=== PATIENT | female | born 1950 | race Caucasian/White ===

== ENCOUNTER 2016-12-03 19:00 | Inpatient (IN) | payer OTHER ==
[~2016-12-03] VITALS: Ht 167.6 cm; Wt 86.2 kg
[~2016-12-03 19:00] MED LIST: ALBU0.63 NEB; ALBU8.5H8 INH; CHOL2000 PO; CHOL500016 PO; FLAX100031 PO; HYDR25TA9 PO; LOSA100T6 PO; NAPR220T70 PO; OMEG500C PO; PRAV20TA2 PO; TIOT18CA IH
--- NOTE | 2016-12-03 19:22 | ED.ADGEN ---
Past History Past Medical History: COPD, Hypertension Past Surgical History: Appendectomy, Cholecystectomy, Hysterectomy Alcohol Use: None Drug Use: None Adult General HPI HPI Patient is an 66-year-old female, history of dementia, COPD, oxygen dependent on 3 L at all times, hypertension, who presents to the emergency department via private vehicle with report of shortness of breath and inability to use her oxygen concentrator. Patient states she was more short of breath earlier today, states she believes "it was the humidity", noted that her concentrator was not working. Patient states that her oxygen is "running out", she did have an oxygen bottle that she brought to the emergency department, but states that her concentrator is not longer working. Per report of family which was given to nurse via telephone prior to the patient's arrival in the ED, apparently the patient has not paid her bill to the concentrator company, and therefore they will not service the concentrator until the balance is settled, and was running out of her tank oxygen at home. Family also reported the patient is being placed on hospice on Wednesday. Additional information is available at this time. Patient is very anxious, states that she has had some increased swelling in her lower extremities as well, her family at bedside, they have discussed this with the patient's primary care provider recently. She states that she tries "to stay away from doctors and hospitals". She denies any changes in medication, missed doses of medication. States she is compliant with the instructions her health care provider. Patient is on her baseline 3 L via nasal cannula, with an oxygen saturation of 92-94%. Review of Systems Review of Systems Constitutional: Denies fever or chills [] Eyes: Denies change in visual acuity, redness, or eye pain [] HENT: Denies nasal congestion or sore throat [] Respiratory: Denies cough or shortness of breath [] Cardiovascular: No additional information not addressed in HPI [] GI: Denies abdominal pain, nausea, vomiting, bloody stools or diarrhea [] : Denies dysuria or hematuria [] Musculoskeletal: Denies back pain or joint pain [] Integument: Denies rash or skin lesions [] Neurologic: Denies headache, focal weakness or sensory changes [] Endocrine: Denies polyuria or polydipsia [] Denies complaints aside from her typical shortness of breath and lower leg swelling. Current Medications Current Medications Current Medications Medications (Trade) Dose Ordered Sig/Saida Start Time Stop Time Status Last Admin Dose Admin Acetaminophen (Tylenol) 650 mg PRN Q4HRS PRN 12/03/16 23:00 12/04/16 22:59 Albuterol/ Ipratropium (Duoneb) 3 ml RTQID 12/04/16 08:00 12/05/16 07:59 Aspirin (Children'S Aspirin) 81 mg STK-MED ONCE 12/03/16 20:53 12/03/16 20:54 DC Furosemide (Lasix) 40 mg 1X ONCE 12/03/16 21:20 12/03/16 21:21 DC 12/03/16 21:24 40 MG Nitroglycerin (Nitrostat) 0.4 mg PRN Q5MIN PRN 12/03/16 23:00 12/04/16 22:59 Ondansetron HCl (Zofran) 4 mg PRN Q4HRS PRN 12/03/16 23:00 12/04/16 22:59 Allergies Allergies Allergies Coded Allergies Type Severity Reaction Last Updated Verified Penicillins Allergy Intermediate rash 07/03/14 No Uncoded Allergies Type Severity Reaction Last Updated Verified soaps Adverse Reaction Unknown rash 07/02/14 Physical Exam Physical Exam Constitutional: Well developed, well nourished, anxious, non-toxic appearance. [ ] HENT: Normocephalic, atraumatic, bilateral external ears normal, oropharynx moist, no oral exudates, nose normal. [] Eyes: PERRLA, EOMI, conjunctiva normal, no discharge. [] Neck: Normal range of motion, no tenderness, supple, no stridor. [] Cardiovascular: S1, S2, no rubs, 3-5 systolic murmur, no gallops. Lungs & Thorax: Patient with diminished breath sounds noted throughout, no chest wall crepitus or tenderness. Abdomen: Bowel sounds normal, obese, no rebound, rigidity, no guarding soft, no tenderness, no masses, no pulsatile masses. [] Skin: Warm, dry, no erythema, no rash. [] Back: No tenderness, no CVA tenderness. [] Extremities: No tenderness, no cyanosis, no clubbing, ROM intact, 2+ pitting edema bilaterally, no evidence of acute infection. Neurologic: Alert and oriented X 3, normal motor function, normal sensory function, no focal deficits noted. [] Psychologic: Patient is anxious, judgement normal, mood normal. [] Current Patient Data Vital Signs Vital Signs Date Time Temp Pulse Resp B/P (MAP) Pulse Ox O2 Delivery O2 Flow Rate FiO2 12/03/16 21:32 88 16 166/64 (98) 99 Nasal Cannula 3.0 12/03/16 19:07 98.4 Lab Results Laboratory Tests Test 12/03/16 19:55 12/03/16 20:40 White Blood Count 11.0 x10^3/uL (4.0-11.0) Red Blood Count 4.55 x10^6/uL (3.50-5.40) Hemoglobin 14.0 g/dL (12.0-15.5) Hematocrit 42.0 % (36.0-47.0) Mean Corpuscular Volume 92 fL (79-100) Mean Corpuscular Hemoglobin 31 pg (25-35) Mean Corpuscular Hemoglobin Concent 33 g/dL (31-37) Red Cell Distribution Width 14.4 % (11.5-14.5) Platelet Count 152 x10^3/uL (140-400) Neutrophils (%) (Auto) 70 % (31-73) Lymphocytes (%) (Auto) 18 % (24-48) L Monocytes (%) (Auto) 9 % (0-9) Eosinophils (%) (Auto) 2 % (0-3) Basophils (%) (Auto) 1 % (0-3) Neutrophils # (Auto) 7.7 x10^3uL (1.8-7.7) Lymphocytes # (Auto) 2.0 x10^3/uL (1.0-4.8) Monocytes # (Auto) 1.0 x10^3/uL (0.0-1.1) Eosinophils # (Auto) 0.2 x10^3/uL (0.0-0.7) Basophils # (Auto) 0.1 x10^3/uL (0.0-0.2) Sodium Level 134 mmol/L (136-145) L Potassium Level 3.9 mmol/L (3.5-5.1) Chloride Level 95 mmol/L (98-107) L Carbon Dioxide Level 35 mmol/L (21-32) H Anion Gap 4 (6-14) L Blood Urea Nitrogen 14 mg/dL (7-20) Creatinine 1.1 mg/dL (0.6-1.0) H Estimated GFR (Cockcroft-Gault) 49.4 BUN/Creatinine Ratio 13 (6-20) Glucose Level 100 mg/dL (70-99) H Calcium Level 9.3 mg/dL (8.5-10.1) Total Bilirubin 0.4 mg/dL (0.2-1.0) Aspartate Amino Transferase (AST) 17 U/L (15-37) Alanine Aminotransferase (ALT) 16 U/L (14-59) Alkaline Phosphatase 82 U/L (46-116) Troponin I Quantitative 0.120 ng/mL (0-0.055) H ZD-Uqr-M-Type Natriuretic Peptide 4655 pg/mL (0-124) H Total Protein 6.9 g/dL (6.4-8.2) Albumin 3.9 g/dL (3.4-5.0) Albumin/Globulin Ratio 1.3 (1.0-1.7) Urine Collection Type Unknown Urine Color Yellow Urine Clarity Hazy Urine pH 6.5 Urine Specific [place] 1.010 Urine Protein 30 mg/dl (NEG-TRACE) Urine Glucose (UA) Neg mg/dL (NEG) Urine Ketones (Stick) Neg mg/dL (NEG) Urine Blood Trace (NEG) Urine Nitrite Neg (NEG) Urine Bilirubin Neg (NEG) Urine Urobilinogen Dipstick 0.2 mg/dL (0.2 mg/dL) Urine Leukocyte Esterase Mod (NEG) Urine RBC 0 /HPF (0-2) Urine WBC 5-10 /HPF (0-4) Urine Squamous Epithelial Cells Mod /LPF Urine Bacteria Mod /HPF (0-FEW) Urine Yeast Present /HPF EKG EKG EC: Sinus rhythm, heart rate 82 beats minute, upright axis, QTC of 433, PA 144, QRS of 86, contour normality is noted in the anterior septal leads, no ST elevations or depressions, abnormal ECG, does not meet STEMI criteria. As interpreted by me. [] Radiology/Procedures Radiology/Procedures [] Course & Med Decision Making Course & Med Decision Making Pertinent Labs and Imaging studies reviewed. (See chart for details) I spoke with Dr. Cook, the patient's primary care provider, who states that she has been working with family to try to provide additional coverage and assistance the patient home. States that she has been contacted several times going regarding the swelling in the patient's lower extremity recently, discussed that the patient had this point is appearing stable in the ED, but as stated has no axis to her necessary oxygen at home, and at this time we will proceed with an evaluation of the patient's shortness of breath and bilateral leg swelling, with plan to admit the patient for additional observation and management. She states that she will contact the oxygen concentrator company to assist with the issue tomorrow. Laboratory studies reveal a troponin that is elevated at 0.120, and a proBNP that is greater than 4500. Chest x-ray is unremarkable, ECG does not reveal evidence of ST elevation or depression, and patient is chest pain-free in the ED and denies any chest pain, currently no shortness of breath. I did discuss findings as above with Dr. Walker cardiology, patient has received aspirin in the ED, and remains asymptomatic. I believe the patient's elevated troponin may be due to congestive heart failure, she does take Lasix, although I been able to obtain the exact dosing at this time, in conjunction with the patient's COPD, will continue to monitor her cardiac function. He recommends admission to [facility], with serial troponins, patient also received 40 Lasix in the ED, will continue to monitor, no other in a quite relation at this time. I did discuss this with Dr. Zarate, patient was accepted to his service as a full admission to the ICU for close monitoring and cardiology consultation. Ridge orders entered per discussion. Patient remained stable and comfortable in the emergency department , transferred to the ICU without issue. Final Impression Final Impression [] Problems: Dragon Disclaimer Dragon Disclaimer This electronic medical record was generated, in whole or in part, using a voice recognition dictation system. Departure: Impression: Primary Impression: Elevated troponin Additional Impression: Shortness of breath Condition: IMPROVED ALAN CROCKETT DO Dec 03, 2016 19:22
[2016-12-03 20:16] LABS: BASO # 0.1 x10^3/uL (0.0-0.2); BASO % 1 % (0-3); EOS # 0.2 x10^3/uL (0.0-0.7); EOS % 2 % (0-3); LYMPH % 18 % (24-48); MEAN CORPUSCULAR HEMOGLOBIN 31 pg (25-35); MEAN CORPUSCULAR HGB CONC 33 g/dL (31-37); MEAN CORPUSCULAR VOLUME 92 fL (79-100); MONO % 9 % (0-9); NEUT # 7.7 x10^3uL (1.8-7.7); NEUT % 70 % (31-73); PLATELET COUNT 152 x10^3/uL (140-400); RED BLOOD COUNT 4.55 x10^6/uL (3.50-5.40); RED CELL DISTRIBUTION WIDTH 14.4 % (11.5-14.5)
--- NOTE | 2016-12-03 20:32 | EKG ---
[facility] ED [facility] [address] [place] [id number] Test Date: 2016-12-03 Test Time: 20:30:26 Pat Name: ROGE PINEDA Department: Room: Gender: F [employer]: : 1950 Requested By: ALAN CROCKETT Order Number: [id number] Reading MD: Measurements Intervals [place] Rate: 82 P: 30 MN: 144 QRS: 18 QRSD: 86 T: 64 QT: 368 QTc: 433 Interpretive Statements SINUS RHYTHM LEFT ATRIAL ABNORMALITY QRS(T) CONTOUR ABNORMALITY CANNOT RULE OUT ANTEROSEPTAL MYOCARDIAL DAMAGE T ABNORMALITY IN HIGH LATERAL LEADS RI6.01 Unconfirmed report No previous ECG available for comparison
[2016-12-03 20:39] LABS: ALBUMIN 3.9 g/dL (3.4-5.0); ALBUMIN/GLOBULIN RATIO 1.3 (1.0-1.7); CALCIUM 9.3 mg/dL (8.5-10.1); CREATININE 1.1 mg/dL (0.6-1.0); GFR 49.4; POTASSIUM 3.9 mmol/L (3.5-5.1); TOTAL BILIRUBIN 0.4 mg/dL (0.2-1.0); TOTAL PROTEIN 6.9 g/dL (6.4-8.2)
[2016-12-03] MEDS ORDERED: ASPIRIN 81 MG TAB.CHEW ONE (20:53)
[2016-12-03 20:57] LABS: CLARITY,URINE HAZY; COLOR,URINE YELLOW
[2016-12-03 20:58] LABS: BACTERIA,URINE MOD /HPF (0-FEW); BILIRUBIN,URINE NEG (NEG); GLUCOSE,URINE NEG (NEG); NITRITE,URINE NEG (NEG); RBC,URINE 0 /HPF (0-2); SQUAMOUS EPITHELIAL CELL,UR MOD /LPF; UROBILINOGEN,URINE 0.2 mg/dL (0.2 mg/dL); YEAST,URINE PRESENT /HPF
[2016-12-03] MEDS ORDERED: IPRATRPIUM/ALBUTEROL 0.5/2.5MG 3 ML NEBU. NEB ONE (21:20)
[2016-12-03] MEDS ORDERED: FUROSEMIDE 40 MG/4 ML VIAL IVP ONE (21:20)
[2016-12-03] MEDS ORDERED: ASPIRIN 81 MG TAB.CHEW PO ONE (22:50)
[2016-12-03 23:00] VITALS: BP 135/79
[2016-12-03] MEDS ORDERED: NITROGLYCERIN SUBLINGUAL 0.4 MG BOTTLE OF 25. SL PRN (23:00)
[2016-12-03] MEDS ORDERED: ONDANSETRON PF 4 MG/2 ML VIAL. IV PRN (23:00)
[2016-12-03] MEDS ORDERED: ACETAMINOPHEN 325 MG TABLET PO PRN (23:00)
[2016-12-04] VITALS (16 sets, daily range): BP systolic 100–166; BP diastolic 54–95
[2016-12-04] MEDS ORDERED: ASPI-630 PO (00:23)
[2016-12-04] MEDS ORDERED: LABE200T2 PO (00:23)
--- NOTE | 2016-12-04 04:09 | ACF ---
Admission Criteria Forms TELEMETRY CARE Telemetry Admission Guidelines (Place 'X' for any and all applicable criteria): Admission to telemetry [A] may be indicated for ANY ONE of the following(1)(2)(3 )(4)(5): [X]I. Cardiac disease, including ANY ONE of the following (9)(10)(11)(12)(13 ): [ ]a) Postacute NE [ ]b) Low-risk patients with ST-segment elevation NE who have undergone successful percutaneous coronary intervention [ ]c) Unstable angina [X]d) Suspected NE (until it is ruled out) [ ]e) Post cardiac surgery (first 48 to 72 hours unless complications occur) [ ]f) Acute arrhythmias (including significant tachycardia or bradycardia) [B] [ ]g) Firing of an implantable cardioverter defibrillator [C] [ ]h) Suspected pacemaker or implantable cardioverter defibrillator malfunction (10) [ ]i) New administration or adjustment of an antiarrhythmic drug [D ] [ ]j) Child admitted for acute congestive heart failure [ ]j) Long QT syndrome [ ]k) Advanced heart block (eg, second-degree Mobitz type II, third- degree heart block) [ ]l) Acute myocarditis or pericarditis [ ]m) Short-term (ambulatory or inpatient) monitoring after a cardiac procedure as indicated by ANY ONE of the following [E]: [ ]i) Electrophysiologic studies [ ]ii) Percutaneous coronary intervention with stent placement [ ]iii) Pacemaker placement with cardiac conduction defect [ ]iv) Implantable cardiac defibrillator placement [ ]II. Drug overdose or poisoning with substance that causes arrhythmias or QT prolongation (eg, phenothiazines, sympathomimetic agents, cyclic antidepressants, digitalis, antiarrhythmic drugs)(15) [ ]III. Short-term (ambulatory or inpatient) monitoring after therapeutic or diagnostic procedure requiring conscious sedation or anesthesia (eg, endoscopy, elective cardioversion) [ ]IV. Acute cerebrovascular even[F](18) [ ]V. Massive blood transfusion (eg, at least 10 units of packed red blood cells in 24 hours) [ ]. Variceal bleeding after endoscopy, sclerotherapy, or IV vasopressin [ ]VII. Uncorrected electrolyte abnormalities associated with an increased risk of dangerous arrhythmia [G]; examples include [ ]a) Hyperkalemia with attributable ECG changes [ ]b) Potassium greater than 6.5 mmol/L (mEq/L) in a patient without history of chronic renal disease [ ]c) Prolonged QT attributed to hypokalemia, hypomagnesemia, or hypocalcemia [ ]VIII.Unexplained syncope or other neurologic event suspected of being due to arrhythmia due to a finding that increases risk; examples include(19)(20)(21): [ ]a) High-risk ECG findings (eg, bifascicular block, bradycardia, abnormal QT interval, ventricular pre- excitation) [ ]b) History of previous syncope due to arrhythmia [ ]c) Abnormal ventricular function (eg, reduced ejection fraction ) [ ]d) Exertional or supine syncope [ ]e) Concerning syncope characteristics (eg, sudden loss of consciousness without prodrome) [ ]f) Family history of sudden [ ]g) Use of arrhythmogenic medication [ ]h) Suspected cardiac ischemia [ ]i) Known channelopathy (eg, long QT syndrome, Brugada syndrome, or catecholaminergic paroxysmal ventricular tachycardia) [ ]j) Known structural heart disease (eg, hypertrophic cardiomyopathy , severe valvular disease) [ ]k) Palpitations preceding syncope The original [employer] content created by [employer] has been revised. The portions of the content which have been revised are identified through the use of italic text or in bold, and [employer] has neither reviewed nor approved the modified material. All other unmodified content is copyright [employer]. Please see references footnoted in the original [employer] edition 2016 Admission Criteria Met?: Yes TICO UGARTE Dec 04, 2016 04:09
[2016-12-04] MEDS ORDERED: IPRATRPIUM/ALBUTEROL 0.5/2.5MG 3 ML NEBU. NEB PRN (06:45)
--- NOTE | 2016-12-04 07:05 | EKG ---
[address] [address] Test Date: 2016-12-04 Test Time: 07:04:06 Pat Name: ROGE PINEDA Department: Room: Gender: F [employer]: : 1950 Requested By: ALAN CROCKETT Order Number: [id number] Reading MD: Measurements Intervals [place] Rate: 74 P: 41 HI: 164 QRS: 11 QRSD: 78 T: 75 QT: 382 QTc: 424 Interpretive Statements SINUS RHYTHM LEFT ATRIAL ABNORMALITY T ABNORMALITY IN HIGH LATERAL LEADS ABNORMAL ECG RI6.01 Unconfirmed report Compared to ECG 07/03/2014 11:16:24 No significant changes
--- NOTE | 2016-12-04 07:54 | RAD ---
Portable AP upright view CXR: Clinical indications: Dyspnea. Smoker. History of AAA stent. Comparison: November 30, 2014. Findings: Chronic interstitial lung disease is seen bilaterally along with chronic mild pleural thickening of the right lateral costophrenic angle. No new lung infiltrate or pleural effusion or pulmonary edema or lung mass or pneumothorax is seen. The heart size, pulmonary vasculature, mediastinum and both bartolome are stable. Impression: No new radiographic abnormality is seen.
[2016-12-04] MEDS ORDERED: IPRATRPIUM/ALBUTEROL 0.5/2.5MG 3 ML NEBU. NEB SCH (08:00)
[2016-12-04 08:41] LABS: BASO # 0.1 x10^3/uL (0.0-0.2); BASO % 1 % (0-3); EOS # 0.2 x10^3/uL (0.0-0.7); EOS % 2 % (0-3); HEMATOCRIT 42.6 % (36.0-47.0); HEMOGLOBIN 14.3 g/dL (12.0-15.5); LYMPH # 1.3 x10^3/uL (1.0-4.8); LYMPH % 14 % (24-48); MEAN CORPUSCULAR HEMOGLOBIN 31 pg (25-35); MEAN CORPUSCULAR HGB CONC 34 g/dL (31-37); MEAN CORPUSCULAR VOLUME 93 fL (79-100); MONO # 0.9 x10^3/uL (0.0-1.1); MONO % 11 % (0-9); NEUT # 6.4 x10^3uL (1.8-7.7); NEUT % 72 % (31-73); PLATELET COUNT 150 x10^3/uL (140-400); RED BLOOD COUNT 4.59 x10^6/uL (3.50-5.40); RED CELL DISTRIBUTION WIDTH 14.6 % (11.5-14.5); WHITE BLOOD COUNT 8.8 x10^3/uL (4.0-11.0)
[2016-12-04 08:47] LABS: CALCIUM 9.2 mg/dL (8.5-10.1); CREATININE 1.2 mg/dL (0.6-1.0); GFR 44.7; POTASSIUM 3.8 mmol/L (3.5-5.1)
[2016-12-04 09:09] LABS: ALBUMIN 3.9 g/dL (3.4-5.0); MAGNESIUM 1.7 mg/dL (1.8-2.4)
[2016-12-04] MEDS ORDERED: FUROSEMIDE 20 MG/2 ML VIAL IVP SCH (09:15)
[2016-12-04] MEDS: busPIRone 5 MG TABLET. PO SCH ×3 (09:26→21:33)
[2016-12-04 09:38] LABS: DIRECT BILIRUBIN 0.2 mg/dL (0.0-0.2); TOTAL BILIRUBIN 0.4 mg/dL (0.2-1.0)
[2016-12-04] MEDS ORDERED: FUROSEMIDE 20 MG/2 ML VIAL IVP ONE (10:00)
[2016-12-04] MEDS ORDERED: ALBUTEROL SULFATE 2.5 MG/3 ML NEBU. NEB PRN ×2 (10:15→11:00)
[2016-12-04] MEDS ORDERED: NON FORMULARY ITEM (Albuterol Sulfate (Albuterol Sulfate Neb Soln) 0.63 MG) NEB PRN (10:45)
[2016-12-04] MEDS ORDERED: ALBUTEROL SULFATE 8GM INHALER. INH PRN (10:45)
[2016-12-04] MEDS: IPRATRPIUM/ALBUTEROL 0.5/2.5MG 3 ML NEBU. NEB SCH ×3 (10:47→20:41)
[2016-12-04] MEDS: PRAVASTATIN 20 MG TABLET. PO SCH (11:00)
[2016-12-04] MEDS: LABETALOL HCL 200 MG TABLET PO SCH ×2 (11:01→21:00)
[2016-12-04] MEDS: ALPRAZolam 0.25 MG TABLET PO PRN (11:01)
[2016-12-04] MEDS: hydroCHLOROthiazide 25 MG TABLET PO PRN (11:01)
[2016-12-04] MEDS: LOSARTAN 50 MG TABLET. PO SCH (11:01)
[2016-12-04] MEDS: PHENAZOPYRIDINE 100 MG TABLET. PO SCH ×3 (11:11→21:33)
--- NOTE | 2016-12-04 13:57 | PDOC2 ---
CARDIAC CONSULT DATE OF CONSULT Date Of Consult DATE: 12/04/16 TIME: 13:46 REASON FOR CONSULT Reason for Consult Acute CHF REFERRING PHYSICIAN Referring Physician Dr. Alexia GUSMAN History of Present Illness Ms. Bolivar is a 66-year-old female who has a history of heart failure with preserved ejection fraction, essential hypertension, hyperlipidemia, diabetes mellitus type 2, history of abdominal aortic aneurysm status post endovascular repair at [facility], tobacco use, severe COPD on chronic 3 liters of oxygen, posttraumatic stress disorder, anxiety, and dementia. Patient presented with symptoms of progressive worsening shortness of breath. It was noted that the patient's oxygen was running out, and her oxygen container was empty. Unfortunately, the patient is a rather poor historian due to underlying dementia and anxiety, and family is not available this morning at bedside. According to documentation in the electronic medical records, the family is reportedly planning on placing the patient in hospice next week. The patient's workup included a ECG which demonstrates no significant ectopy or arrhythmias, with no significant ischemic changes, a markedly elevated BNP of over 4000, mildly elevated troponins which are now trending down, and chest x- ray demonstrated no acute changes. The patient was subsequently restarted on her home oxygen supplementation dose, and given a dose of IV Lasix with significant improvement of her symptoms. This morning, the patient denies any recent episodes of chest pains. She does admit to lower extremity edema that occurs periodically. The patient has remained hemodynamically stable since admission. She is otherwise doing well this morning and has no other particular complaints. PAST MEDICAL HISTORY Cardiovascular: CHF, HTN, pulmonary hypertension, Other (AAA s/p EVAR) Pulmonary: COPD CENTRAL NERVOUS SYSTEM: Dementia Psych: Anxiety Endocrine: Diabetes CURRENT MEDICATIONS Current Medications Current Medications Aspirin (Children'S Aspirin) 324 mg 1X ONCE PO Last administered on 12/03/16 20:57; Start 12/03/16 at 22:50; Stop 12/03/16 at 22:52; Status DC Aspirin (Children'S Aspirin) 81 mg STK-MED ONCE .ROUTE ; Start 12/03/16 at 20:53 ; Stop 12/03/16 at 20:54; Status DC Furosemide (Lasix) 40 mg 1X ONCE IVP Last administered on 12/03/16 21:24; Start 12/03/16 at 21:20; Stop 12/03/16 at 21:21; Status DC Albuterol/ Ipratropium (Duoneb) 3 ml 1X ONCE NEB Last administered on 21:25; Start 12/03/16 at 21:20; Stop 12/03/16 at 21:21; Status DC Ondansetron HCl (Zofran) 4 mg PRN Q4HRS PRN IV NAUSEA/VOMITING; Start 12/03/16 at 23:00; Stop 12/04/16 at 22:59 Acetaminophen (Tylenol) 650 mg PRN Q4HRS PRN PO FEVER; Start 12/03/16 at 23:00 ; Stop 12/04/16 at 22:59 Nitroglycerin (Nitrostat) 0.4 mg PRN Q5MIN PRN SL CHEST PAIN; Start 12/03/16 at 23:00; Stop 12/04/16 at 22:59 Albuterol/ Ipratropium (Duoneb) 3 ml RTQID NEB ; Start 12/04/16 at 08:00; Stop 12/04/16 at 09:21; Status DC Albuterol/ Ipratropium (Duoneb) 3 ml PRN DAILY PRN NEB WHEEZING; Start at 06:45; Stop 12/04/16 at 10:14; Status DC Furosemide (Lasix) 20 mg DAILY IVP Last administered on 12/04/16 09:26; Start 12/04/16 at 09:15 Albuterol/ Ipratropium (Duoneb) 3 ml RTQID NEB Last administered on 12/04/16 10:47; Start 12/04/16 at 12:00 Buspirone HCl (Buspar) 5 mg TID PO Last administered on 12/04/16 09:26; Start 12/04/16 at 09:15 Furosemide (Lasix) 20 mg 1X ONCE IVP Last administered on 12/04/16 10:03; Start 12/04/16 at 10:00; Stop 12/04/16 at 10:02; Status DC Furosemide (Lasix) 40 mg DAILY IVP ; Start 12/05/16 at 09:00 Alprazolam (Xanax) 0.25 mg PRN Q8HRS PRN PO ANXIETY / AGITATION Last administered on 12/04/16 11:01; Start 12/04/16 at 10:00 Albuterol Sulfate (Ventolin) 2.5 mg PRN DAILY PRN NEB SHORTNESS OF BREATH; Start 12/04/16 at 10:15; Stop 12/04/16 at 10:54; Status DC Phenazopyridine HCl (Pyridium) 100 mg Q8HRS PO Last administered on 12/04/16 11:11; Start 12/04/16 at 10:30; Stop 12/07/16 at 10:29 Albuterol Sulfate (Ventolin Hfa) 1-2puff PRN Q4 PRN Q4HRS PRN INH SHORTNESS OF BREATH; Start 12/04/16 at 10:45; Stop 12/04/16 at 10:55; Status DC Hydrochlorothiazide (Hydrodiuril) 25 mg PRN DAILY PRN PO HYPERTENSION, SEE COMMENTS Last administered on 12/04/16 11:01; Start 12/04/16 at 10:45 Labetalol HCl (Trandate) 200 mg BID PO Last administered on 12/04/16 11:01; Start 12/04/16 at 11:00 Pravastatin Sodium (Pravachol) 20 mg DAILY PO Last administered on 12/04/16 11 :00; Start 12/04/16 at 11:00 Non-Formulary Medication 0.63 mg PRN Q4-6HRS PRN NEB SHORTNESS OF BREATH; Start 12/04/16 at 10:45; Status UNV Losartan Potassium (Cozaar) 100 mg DAILY PO Last administered on 12/04/16 11: 01; Start 12/04/16 at 11:00 Albuterol Sulfate (Ventolin) 2.5 mg PRN Q6HRS PRN NEB SHORTNESS OF BREATH; Start 12/04/16 at 11:00 Active Scripts Active Reported Labetalol Hcl 200 Mg Tablet 1 Tab PO BID Hydrochlorothiazide Tablet (Hydrochlorothiazide) 25 Mg Tablet 25 Mg PO PRN DAILY PRN Pravastatin Sodium 20 Mg Tablet 20 Mg PO DAILY Losartan Potassium 100 Mg Tablet 100 Mg PO DAILY Proair Hfa Inhaler (Albuterol Sulfate) 8.5 Gm Hfa.aer.ad 1-2 Puff INH PRN Q4- 6HRS PRN Albuterol Sulfate Neb Soln (Albuterol Sulfate) 0.63 Mg/3 Ml Vial.neb 0.63 Mg NEB PRN Q4-6HRS PRN ALLERGIES Allergies: Coded Allergies: Penicillins (Unverified Allergy, Intermediate, rash, 07/03/14) Uncoded Allergies: soaps (Adverse Reaction, Unknown, rash, 07/02/14) ROS Review of Systems 14-point organ system ROS is negative other than as described above. PHYSICAL EXAM General: Alert, Oriented X3, mild distress HEENT: Atraumatic, PERRLA, EOMI Lungs: Clear to auscultation, Normal air movement Heart: Regular rate, Normal S1, Normal S2, No murmurs Abdomen: Normal bowel sounds, Soft, No tenderness Extremities: Other (1+ pitting edema bilaterally.) Skin: No significant lesion Neuro: Normal tone, Cranial nerves 3-12 NL MUSCULOSKELETAL: No deformity VITALS Vital Signs Vital Signs Date Time Temp Pulse Resp B/P (MAP) Pulse Ox O2 Delivery O2 Flow Rate FiO2 12/04/16 13:13 79 120/68 (85) 12/04/16 12:10 Nasal Cannula 3.0 12/04/16 10:47 96 12/04/16 10:16 26 12/04/16 04:00 98.7 LABS LABS Laboratory Tests Test 12/03/16 19:55 12/03/16 20:40 12/04/16 02:40 12/04/16 08:06 White Blood Count 11.0 x10^3/uL (4.0-11.0) 8.8 x10^3/uL (4.0-11.0) Red Blood Count 4.55 x10^6/uL (3.50-5.40) 4.59 x10^6/uL (3.50-5.40) Hemoglobin 14.0 g/dL (12.0-15.5) 14.3 g/dL (12.0-15.5) Hematocrit 42.0 % (36.0-47.0) 42.6 % (36.0-47.0) Mean Corpuscular Volume 92 fL (79-100) 93 fL (79-100) Mean Corpuscular Hemoglobin 31 pg (25-35) 31 pg (25-35) Mean Corpuscular Hemoglobin Concent 33 g/dL (31-37) 34 g/dL (31-37) Red Cell Distribution Width 14.4 % (11.5-14.5) 14.6 % (11.5-14.5) Platelet Count 152 x10^3/uL (140-400) 150 x10^3/uL (140-400) Neutrophils (%) (Auto) 70 % (31-73) 72 % (31-73) Lymphocytes (%) (Auto) 18 % (24-48) 14 % (24-48) Monocytes (%) (Auto) 9 % (0-9) 11 % (0-9) Eosinophils (%) (Auto) 2 % (0-3) 2 % (0-3) Basophils (%) (Auto) 1 % (0-3) 1 % (0-3) Neutrophils # (Auto) 7.7 x10^3uL (1.8-7.7) 6.4 x10^3uL (1.8-7.7) Lymphocytes # (Auto) 2.0 x10^3/uL (1.0-4.8) 1.3 x10^3/uL (1.0-4.8) Monocytes # (Auto) 1.0 x10^3/uL (0.0-1.1) 0.9 x10^3/uL (0.0-1.1) Eosinophils # (Auto) 0.2 x10^3/uL (0.0-0.7) 0.2 x10^3/uL (0.0-0.7) Basophils # (Auto) 0.1 x10^3/uL (0.0-0.2) 0.1 x10^3/uL (0.0-0.2) Sodium Level 134 mmol/L (136-145) 134 mmol/L (136-145) Potassium Level 3.9 mmol/L (3.5-5.1) 3.8 mmol/L (3.5-5.1) Chloride Level 95 mmol/L (98-107) 93 mmol/L (98-107) Carbon Dioxide Level 35 mmol/L (21-32) 36 mmol/L (21-32) Anion Gap 4 (6-14) 5 (6-14) Blood Urea Nitrogen 14 mg/dL (7-20) 13 mg/dL (7-20) Creatinine 1.1 mg/dL (0.6-1.0) 1.2 mg/dL (0.6-1.0) Estimated GFR (Cockcroft-Gault) 49.4 44.7 BUN/Creatinine Ratio 13 (6-20) Glucose Level 100 mg/dL (70-99) 93 mg/dL (70-99) Calcium Level 9.3 mg/dL (8.5-10.1) 9.2 mg/dL (8.5-10.1) Total Bilirubin 0.4 mg/dL (0.2-1.0) 0.4 mg/dL (0.2-1.0) Aspartate Amino Transf (AST/SGOT) 17 U/L (15-37) 14 U/L (15-37) Alanine Aminotransferase (ALT/SGPT) 16 U/L (14-59) 18 U/L (14-59) Alkaline Phosphatase 82 U/L (46-116) 80 U/L (46-116) Troponin I Quantitative 0.120 ng/mL (0-0.055) 0.117 ng/mL (0-0.055) 0.108 ng/mL (0-0.055) NM-Kyi-K-Type Natriuretic Peptide 4655 pg/mL (0-124) Total Protein 6.9 g/dL (6.4-8.2) 7.0 g/dL (6.4-8.2) Albumin 3.9 g/dL (3.4-5.0) 3.9 g/dL (3.4-5.0) Albumin/Globulin Ratio 1.3 (1.0-1.7) Urine Collection Type Unknown Urine Color Yellow Urine Clarity Hazy Urine pH 6.5 Urine Specific [place] 1.010 Urine Protein 30 mg/dl (NEG-TRACE) Urine Glucose (UA) Neg mg/dL (NEG) Urine Ketones (Stick) Neg mg/dL (NEG) Urine Blood Trace (NEG) Urine Nitrite Neg (NEG) Urine Bilirubin Neg (NEG) Urine Urobilinogen Dipstick 0.2 mg/dL (0.2 mg/dL) Urine Leukocyte Esterase Mod (NEG) Urine RBC 0 /HPF (0-2) Urine WBC 5-10 /HPF (0-4) Urine Squamous Epithelial Cells Mod /LPF Urine Bacteria Mod /HPF (0-FEW) Urine Yeast Present /HPF Magnesium Level 1.7 mg/dL (1.8-2.4) Direct Bilirubin 0.2 mg/dL (0.0-0.2) EKG EKG Normal sinus rhythm with no significant ectopy or arrhythmias. No significant acute ischemic changes noted. ASSESSMENT/PLAN Assessment/Plan 1. Acute CHF, presumed diastolic, improving 2. HFpEF 3. Elevated troponin 4. COPD exacerbation 5. Essential hypertension 6. Hyperlipidemia 7. DMII 8. History of AAA s/p EVAR 9. Dementia 10. Anxiety Ms. Bolivar presented with symptoms of progressively worsening shortness of breath. Etiology is not completely clear at this point in time, but likely multifactorial. The patient definitely had evidence of acute CHF on admission, likely diastolic in etiology. The patient was given 40 milligrams of IV Lasix, and has responded appropriately. I think it would be reasonable to continue this for at least another day before transitioning her to an oral regimen. In addition, the patient has responded well to being placed back on oxygen. I suspect underlying COPD playing a role as well. From a cardiovascular standpoint, the patient has not had any recent anginal symptoms, however with her underlying dementia, it is difficult to ascertain if she has in fact been having any chest pains or not. The patient does have mildly elevated troponins , which are now down trending. In review of her records, the patient did have previously elevated troponins as well. To evaluate further, I think the patient would benefit from an echocardiogram. I agree with resuming her home cardiac regimen otherwise. The patient's plans of care currently not very clear. There is report that the patient may be transitioning to hospice in the coming week. We will need to discuss this further with the patient's family once they are available. In the meantime, I would definitely hold off on any aggressive or invasive measures. Thank you for allowing me to participate in the care patient. We will continue to follow along. Please call with any further questions. SINDY REEVES MD Dec 04, 2016 13:57
[2016-12-04] MEDS: CITALOPRAM 10 MG TABLET. PO SCH (15:46)
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
[2016-12-04] MEDS ORDERED: MAGNESIUM SULFATE 2GM 50 ML IV ONE (16:45)
[2016-12-05] MEDS ORDERED: ACETAMINOPHEN 325 MG TABLET PO PRN (02:45)
[2016-12-05] MEDS ORDERED: ACETAMINOPHEN 325 MG TABLET PO ONE (03:02)
[2016-12-05 04:59] VITALS: BP 119/80
[2016-12-05] MEDS: PHENAZOPYRIDINE 100 MG TABLET. PO SCH ×3 (05:42→20:26)
[2016-12-05] MEDS: IPRATRPIUM/ALBUTEROL 0.5/2.5MG 3 ML NEBU. NEB SCH ×4 (05:54→20:08)
[2016-12-05 06:33] LABS: BASO # 0.1 x10^3/uL (0.0-0.2); BASO % 1 % (0-3); EOS # 0.2 x10^3/uL (0.0-0.7); EOS % 3 % (0-3); HEMATOCRIT 40.5 % (36.0-47.0); HEMOGLOBIN 13.6 g/dL (12.0-15.5); LYMPH # 1.4 x10^3/uL (1.0-4.8); LYMPH % 14 % (24-48); MEAN CORPUSCULAR HEMOGLOBIN 31 pg (25-35); MEAN CORPUSCULAR HGB CONC 34 g/dL (31-37); MEAN CORPUSCULAR VOLUME 93 fL (79-100); MONO # 1.1 x10^3/uL (0.0-1.1); MONO % 11 % (0-9); NEUT # 7.1 x10^3uL (1.8-7.7); NEUT % 72 % (31-73); PLATELET COUNT 133 x10^3/uL (140-400); RED BLOOD COUNT 4.37 x10^6/uL (3.50-5.40); RED CELL DISTRIBUTION WIDTH 14.2 % (11.5-14.5); WHITE BLOOD COUNT 9.9 x10^3/uL (4.0-11.0)
[2016-12-05 06:46] LABS: ALBUMIN 3.6 g/dL (3.4-5.0); ALBUMIN/GLOBULIN RATIO 1.2 (1.0-1.7); CALCIUM 8.8 mg/dL (8.5-10.1); CREATININE 1.4 mg/dL (0.6-1.0); GFR 37.4; POTASSIUM 3.7 mmol/L (3.5-5.1); TOTAL BILIRUBIN 0.5 mg/dL (0.2-1.0); TOTAL PROTEIN 6.5 g/dL (6.4-8.2)
[2016-12-05] MEDS: hydroCHLOROthiazide 25 MG TABLET PO PRN (08:47)
[2016-12-05] MEDS: FUROSEMIDE 40 MG/4 ML VIAL IVP SCH (08:47)
[2016-12-05] MEDS: CHOLECALCIFEROL (VITAMIN D3) 1,000 UNIT TABLET PO SCH (08:47)
[2016-12-05] MEDS: PRAVASTATIN 20 MG TABLET. PO SCH (08:48)
[2016-12-05] MEDS: OMEGA-3 FATTY ACIDS/FISH OIL 1,000 MG CAPSULE. PO SCH (08:48)
[2016-12-05] MEDS: ASPIRIN 81 MG TAB.CHEW PO SCH (08:48)
[2016-12-05] MEDS: LOSARTAN 50 MG TABLET. PO SCH (08:49)
[2016-12-05] MEDS: LABETALOL HCL 200 MG TABLET PO SCH ×2 (08:49→20:27)
[2016-12-05] MEDS: CITALOPRAM 10 MG TABLET. PO SCH (08:50)
[2016-12-05] MEDS: busPIRone 5 MG TABLET. PO SCH ×3 (08:50→20:25)
[2016-12-05 10:42] VITALS: BP 113/70
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
--- NOTE | 2016-12-05 12:53 | PDOC ---
Exam Josiah Demential Exam: Josiah Note: Please also refer to the separate dictated note~for this date of service dictated separately.~Patient seen individually. Discussed the patient with Nursing staff reviewed the chart.~Reviewed interim history and current functioning. Reviewed vital signs,~Labs/ Radiology~and current medications noted below. Continue current treatment with the changes noted in the dictated addendum note Assessment: Vital Signs: Vital Signs Date Time Temp Pulse Resp B/P (MAP) Pulse Ox O2 Delivery O2 Flow Rate FiO2 12/05/16 12:00 95 Nasal Cannula 3.0 12/05/16 10:42 98.8 74 20 113/70 (84) I&O Intake and Output 12/05/16 07:00 Intake Total 790 ml Output Total 3125 ml Balance -2335 ml Intake Oral 790 ml Output Urine Total 3125 ml Labs: Laboratory Tests Test 12/05/16 06:08 White Blood Count 9.9 x10^3/uL (4.0-11.0) Red Blood Count 4.37 x10^6/uL (3.50-5.40) Hemoglobin 13.6 g/dL (12.0-15.5) Hematocrit 40.5 % (36.0-47.0) Mean Corpuscular Volume 93 fL (79-100) Mean Corpuscular Hemoglobin 31 pg (25-35) Mean Corpuscular Hemoglobin Concent 34 g/dL (31-37) Red Cell Distribution Width 14.2 % (11.5-14.5) Platelet Count 133 x10^3/uL (140-400) L Neutrophils (%) (Auto) 72 % (31-73) Lymphocytes (%) (Auto) 14 % (24-48) L Monocytes (%) (Auto) 11 % (0-9) H Eosinophils (%) (Auto) 3 % (0-3) Basophils (%) (Auto) 1 % (0-3) Neutrophils # (Auto) 7.1 x10^3uL (1.8-7.7) Lymphocytes # (Auto) 1.4 x10^3/uL (1.0-4.8) Monocytes # (Auto) 1.1 x10^3/uL (0.0-1.1) Eosinophils # (Auto) 0.2 x10^3/uL (0.0-0.7) Basophils # (Auto) 0.1 x10^3/uL (0.0-0.2) Sodium Level 136 mmol/L (136-145) Potassium Level 3.7 mmol/L (3.5-5.1) Chloride Level 94 mmol/L (98-107) L Carbon Dioxide Level 38 mmol/L (21-32) H Anion Gap 4 (6-14) L Blood Urea Nitrogen 16 mg/dL (7-20) Creatinine 1.4 mg/dL (0.6-1.0) H Estimated GFR (Cockcroft-Gault) 37.4 BUN/Creatinine Ratio 11 (6-20) Glucose Level 107 mg/dL (70-99) H Calcium Level 8.8 mg/dL (8.5-10.1) Magnesium Level 2.0 mg/dL (1.8-2.4) Total Bilirubin 0.5 mg/dL (0.2-1.0) Aspartate Amino Transferase (AST) 13 U/L (15-37) L Alanine Aminotransferase (ALT) 16 U/L (14-59) Alkaline Phosphatase 75 U/L (46-116) Total Protein 6.5 g/dL (6.4-8.2) Albumin 3.6 g/dL (3.4-5.0) Albumin/Globulin Ratio 1.2 (1.0-1.7) Current Medications: Meds: Current Medications Aspirin (Children'S Aspirin) 324 mg 1X ONCE PO Last administered on 12/03/16 20:57; Start 12/03/16 at 22:50; Stop 12/03/16 at 22:52; Status DC Aspirin (Children'S Aspirin) 81 mg STK-MED ONCE .ROUTE ; Start 12/03/16 at 20:53 ; Stop 12/03/16 at 20:54; Status DC Furosemide (Lasix) 40 mg 1X ONCE IVP Last administered on 12/03/16 21:24; Start 12/03/16 at 21:20; Stop 12/03/16 at 21:21; Status DC Albuterol/ Ipratropium (Duoneb) 3 ml 1X ONCE NEB Last administered on 21:25; Start 12/03/16 at 21:20; Stop 12/03/16 at 21:21; Status DC Ondansetron HCl (Zofran) 4 mg PRN Q4HRS PRN IV NAUSEA/VOMITING; Start 12/03/16 at 23:00; Stop 12/04/16 at 22:59; Status DC Acetaminophen (Tylenol) 650 mg PRN Q4HRS PRN PO FEVER; Start 12/03/16 at 23:00 ; Stop 12/04/16 at 22:59; Status DC Nitroglycerin (Nitrostat) 0.4 mg PRN Q5MIN PRN SL CHEST PAIN; Start 12/03/16 at 23:00; Stop 12/04/16 at 22:59; Status DC Albuterol/ Ipratropium (Duoneb) 3 ml RTQID NEB ; Start 12/04/16 at 08:00; Stop 12/04/16 at 09:21; Status DC Albuterol/ Ipratropium (Duoneb) 3 ml PRN DAILY PRN NEB WHEEZING; Start at 06:45; Stop 12/04/16 at 10:14; Status DC Furosemide (Lasix) 20 mg DAILY IVP Last administered on 12/04/16 09:26; Start 12/04/16 at 09:15; Stop 12/05/16 at 03:43; Status DC Albuterol/ Ipratropium (Duoneb) 3 ml RTQID NEB Last administered on 12/05/16 11 :59; Start 12/04/16 at 12:00 Buspirone HCl (Buspar) 5 mg TID PO Last administered on 12/05/16 08:50; Start 12/04/16 at 09:15 Furosemide (Lasix) 20 mg 1X ONCE IVP Last administered on 12/04/16 10:03; Start 12/04/16 at 10:00; Stop 12/04/16 at 10:02; Status DC Furosemide (Lasix) 40 mg DAILY IVP Last administered on 12/05/16 08:47; Start 12/05/16 at 09:00 Alprazolam (Xanax) 0.25 mg PRN Q8HRS PRN PO ANXIETY / AGITATION Last administered on 12/04/16 11:01; Start 12/04/16 at 10:00 Albuterol Sulfate (Ventolin) 2.5 mg PRN DAILY PRN NEB SHORTNESS OF BREATH; Start 12/04/16 at 10:15; Stop 12/04/16 at 10:54; Status DC Phenazopyridine HCl (Pyridium) 100 mg Q8HRS PO Last administered on 12/05/16 05 :42; Start 12/04/16 at 10:30; Stop 12/07/16 at 10:29 Albuterol Sulfate (Ventolin Hfa) 1-2puff PRN Q4 PRN Q4HRS PRN INH SHORTNESS OF BREATH; Start 12/04/16 at 10:45; Stop 12/04/16 at 10:55; Status DC Hydrochlorothiazide (Hydrodiuril) 25 mg PRN DAILY PRN PO HYPERTENSION, SEE COMMENTS Last administered on 12/05/16 08:47; Start 12/04/16 at 10:45 Labetalol HCl (Trandate) 200 mg BID PO Last administered on 12/05/16 08:49; Start 12/04/16 at 11:00 Pravastatin Sodium (Pravachol) 20 mg DAILY PO Last administered on 12/05/16 08: 48; Start 12/04/16 at 11:00 Non-Formulary Medication 0.63 mg PRN Q4-6HRS PRN NEB SHORTNESS OF BREATH; Start 12/04/16 at 10:45; Status UNV Losartan Potassium (Cozaar) 100 mg DAILY PO Last administered on 12/05/16 08:49 ; Start 12/04/16 at 11:00 Albuterol Sulfate (Ventolin) 2.5 mg PRN Q6HRS PRN NEB SHORTNESS OF BREATH; Start 12/04/16 at 11:00 Aspirin (Children'S Aspirin) 81 mg DAILYWBKFT PO Last administered on 12/05/16 08:48; Start 12/05/16 at 08:00 Vitamin D (Vitamin D3) 5,000 unit DAILY PO Last administered on 12/05/16 08:47 ; Start 12/05/16 at 09:00 Fish Oil (Fish Oil) 1,000 mg DAILY PO Last administered on 12/05/16 08:48; Start 12/05/16 at 09:00 Citalopram Hydrobromide (CeleXA) 10 mg DAILY PO Last administered on 12/05/16 08:50; Start 12/04/16 at 15:30 Magnesium Sulfate 50 ml @ 25 mls/hr 1X ONCE IV Last administered on 12/04/16 18:01; Start 12/04/16 at 16:45; Stop 12/04/16 at 18:44; Status DC Acetaminophen (Tylenol) 650 mg PRN Q6HRS PRN PO PAIN / TEMP Last administered on 12/05/16 03:05; Start 12/05/16 at 02:45 Acetaminophen (Tylenol) 325 mg STK-MED ONCE PO ; Start 12/05/16 at 03:02; Stop at 03:03; Status DC Active Scripts Active Reported Labetalol Hcl 200 Mg Tablet 1 Tab PO BID Hydrochlorothiazide Tablet (Hydrochlorothiazide) 25 Mg Tablet 25 Mg PO PRN DAILY PRN Pravastatin Sodium 20 Mg Tablet 20 Mg PO DAILY Losartan Potassium 100 Mg Tablet 100 Mg PO DAILY Proair Hfa Inhaler (Albuterol Sulfate) 8.5 Gm Hfa.aer.ad 1-2 Puff INH PRN Q4- 6HRS PRN Albuterol Sulfate Neb Soln (Albuterol Sulfate) 0.63 Mg/3 Ml Vial.neb 0.63 Mg NEB PRN Q4-6HRS PRN Diagnosis: Problems: (1) Major depressive disorder, recurrent episode (2) Impulse control disorder (3) Dementia, vascular, with depression (4) Anxiety disorder (5) Dementia, vascular, with delusions AMY SHANKAR MD Dec 05, 2016 12:53
[2016-12-05] MEDS: ALPRAZolam 0.25 MG TABLET PO PRN (14:12)
[2016-12-05 15:10] VITALS: BP 125/72
[2016-12-05 18:04] VITALS: BP 122/62
[2016-12-05] MEDS: QUEtiapine 25 MG TABLET. PO SCH (20:26)
[2016-12-06] MEDS: IPRATRPIUM/ALBUTEROL 0.5/2.5MG 3 ML NEBU. NEB SCH ×4 (05:44→20:25)
[2016-12-06] MEDS: PHENAZOPYRIDINE 100 MG TABLET. PO SCH ×3 (05:48→20:30)
[2016-12-06 06:14] VITALS: BP 115/69
[2016-12-06 06:56] LABS: BASO # 0.1 x10^3/uL (0.0-0.2); BASO % 1 % (0-3); EOS # 0.4 x10^3/uL (0.0-0.7); EOS % 4 % (0-3); HEMATOCRIT 40.2 % (36.0-47.0); HEMOGLOBIN 13.3 g/dL (12.0-15.5); LYMPH # 1.6 x10^3/uL (1.0-4.8); LYMPH % 17 % (24-48); MEAN CORPUSCULAR HEMOGLOBIN 31 pg (25-35); MEAN CORPUSCULAR HGB CONC 33 g/dL (31-37); MEAN CORPUSCULAR VOLUME 93 fL (79-100); MONO # 1.1 x10^3/uL (0.0-1.1); MONO % 12 % (0-9); NEUT # 6.1 x10^3uL (1.8-7.7); NEUT % 66 % (31-73); PLATELET COUNT 127 x10^3/uL (140-400); RED BLOOD COUNT 4.32 x10^6/uL (3.50-5.40); RED CELL DISTRIBUTION WIDTH 14.3 % (11.5-14.5); WHITE BLOOD COUNT 9.3 x10^3/uL (4.0-11.0)
[2016-12-06 07:05] LABS: CALCIUM 8.8 mg/dL (8.5-10.1); CREATININE 1.4 mg/dL (0.6-1.0); GFR 37.4; MAGNESIUM 1.7 mg/dL (1.8-2.4); POTASSIUM 3.7 mmol/L (3.5-5.1)
[2016-12-06] MEDS: CITALOPRAM 20 MG TABLET. PO SCH (08:27)
[2016-12-06] MEDS: CHOLECALCIFEROL (VITAMIN D3) 1,000 UNIT TABLET PO SCH (08:27)
[2016-12-06] MEDS: OMEGA-3 FATTY ACIDS/FISH OIL 1,000 MG CAPSULE. PO SCH (08:27)
[2016-12-06] MEDS: PRAVASTATIN 20 MG TABLET. PO SCH (08:28)
[2016-12-06] MEDS: ASPIRIN 81 MG TAB.CHEW PO SCH (08:28)
[2016-12-06] MEDS: busPIRone 5 MG TABLET. PO SCH ×3 (08:28→20:30)
[2016-12-06] MEDS: FUROSEMIDE 40 MG/4 ML VIAL IVP SCH (08:31)
[2016-12-06] MEDS: LOSARTAN 50 MG TABLET. PO SCH (08:31)
[2016-12-06] MEDS: LABETALOL HCL 200 MG TABLET PO SCH ×2 (08:31→20:30)
[2016-12-06] MEDS: MAGNESIUM OXIDE 400 MG TABLET PO SCH (12:17)
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
[2016-12-06] MEDS ORDERED: FLUCONAZOLE 100 MG TABLET. PO ONE (14:30)
[2016-12-06 16:12] VITALS: BP 133/72
[2016-12-06 19:14] VITALS: BP 105/64
[2016-12-06] MEDS: ALPRAZolam 0.25 MG TABLET PO PRN (20:30)
[2016-12-06] MEDS: QUEtiapine 25 MG TABLET. PO SCH (20:30)
[2016-12-06 22:16] VITALS: BP 121/70
[2016-12-07 05:20] VITALS: BP 127/64
[2016-12-07] MEDS: IPRATRPIUM/ALBUTEROL 0.5/2.5MG 3 ML NEBU. NEB SCH ×3 (05:33→16:36)
[2016-12-07] MEDS: PHENAZOPYRIDINE 100 MG TABLET. PO SCH (05:55)
[2016-12-07 06:12] LABS: BASO # 0.1 x10^3/uL (0.0-0.2); BASO % 1 % (0-3); EOS # 0.4 x10^3/uL (0.0-0.7); EOS % 5 % (0-3); HEMATOCRIT 41.5 % (36.0-47.0); HEMOGLOBIN 13.9 g/dL (12.0-15.5); LYMPH # 1.7 x10^3/uL (1.0-4.8); LYMPH % 21 % (24-48); MEAN CORPUSCULAR HEMOGLOBIN 31 pg (25-35); MEAN CORPUSCULAR HGB CONC 33 g/dL (31-37); MEAN CORPUSCULAR VOLUME 93 fL (79-100); MONO # 0.8 x10^3/uL (0.0-1.1); MONO % 10 % (0-9); NEUT # 5.2 x10^3uL (1.8-7.7); NEUT % 64 % (31-73); PLATELET COUNT 127 x10^3/uL (140-400); RED BLOOD COUNT 4.45 x10^6/uL (3.50-5.40); RED CELL DISTRIBUTION WIDTH 14.4 % (11.5-14.5); WHITE BLOOD COUNT 8.2 x10^3/uL (4.0-11.0)
[2016-12-07 06:30] LABS: ALBUMIN 3.6 g/dL (3.4-5.0); ALBUMIN/GLOBULIN RATIO 1.2 (1.0-1.7); CALCIUM 9.2 mg/dL (8.5-10.1); CREATININE 1.2 mg/dL (0.6-1.0); GFR 44.7; MAGNESIUM 1.9 mg/dL (1.8-2.4); POTASSIUM 4.4 mmol/L (3.5-5.1); TOTAL BILIRUBIN 0.4 mg/dL (0.2-1.0); TOTAL PROTEIN 6.7 g/dL (6.4-8.2)
--- NOTE | 2016-12-07 08:37 | PDOC ---
DEEPAK TERESA [employer] MAINTENANCE 12/07/16 0837: PROGRESS NOTES Diagnosis Problem Problems Medical Problems: (1) Elevated troponin Status: Acute (2) Shortness of breath Status: Acute Assessment We are seeing the patient for congestive heart failure CHF, presumed diastolic, echo today. clinically compensated and can switch to oral lasix Elevated troponin, plan for future outpatient stress test, once she finishes rehab. COPD exacerbation - improved, tx per PCP Essential hypertension - Controlled continue same Hyperlipidemia. Continue statin therapy CKD, stage 3 History of AAA s/p EVAR Problems: Subjective She is feeling much better and getting around in her room with out dyspnea. She remains on O2. Swelling resolved but her ankles continue to hurt with walking. She denies any chest pain or palpitations. Objective Vital Signs Date Time Temp Pulse Resp B/P (MAP) Pulse Ox O2 Delivery O2 Flow Rate FiO2 12/07/16 05:35 97 Nasal Cannula 3.0 12/07/16 05:20 97.6 61 18 127/64 (85) Intake and Output 12/07/16 07:00 Intake Total 1940 ml Output Total 1350 ml Balance 590 ml Intake Oral 1940 ml Output Urine Total 1350 ml # Voids 6 Abdomen: Normal bowel sounds, Soft, No tenderness Heart: Regular rate, Normal S1, Normal S2, No murmurs Extremities: No edema, Normal pulses General: Alert, Oriented X3, Cooperative HEENT: EOMI, Mucous membr. moist/pink Lungs: Clear to auscultation Psych/Mental Status: Mental status NL, Mood NL Review of Relevant I have reviewed the following items romel (where applicable) has been applied. Labs Laboratory Tests Test 12/06/16 06:29 12/07/16 06:00 White Blood Count 9.3 x10^3/uL (4.0-11.0) 8.2 x10^3/uL (4.0-11.0) Red Blood Count 4.32 x10^6/uL (3.50-5.40) 4.45 x10^6/uL (3.50-5.40) Hemoglobin 13.3 g/dL (12.0-15.5) 13.9 g/dL (12.0-15.5) Hematocrit 40.2 % (36.0-47.0) 41.5 % (36.0-47.0) Mean Corpuscular Volume 93 fL (79-100) 93 fL (79-100) Mean Corpuscular Hemoglobin 31 pg (25-35) 31 pg (25-35) Mean Corpuscular Hemoglobin Concent 33 g/dL (31-37) 33 g/dL (31-37) Red Cell Distribution Width 14.3 % (11.5-14.5) 14.4 % (11.5-14.5) Platelet Count 127 x10^3/uL (140-400) 127 x10^3/uL (140-400) Neutrophils (%) (Auto) 66 % (31-73) 64 % (31-73) Lymphocytes (%) (Auto) 17 % (24-48) 21 % (24-48) Monocytes (%) (Auto) 12 % (0-9) 10 % (0-9) Eosinophils (%) (Auto) 4 % (0-3) 5 % (0-3) Basophils (%) (Auto) 1 % (0-3) 1 % (0-3) Neutrophils # (Auto) 6.1 x10^3uL (1.8-7.7) 5.2 x10^3uL (1.8-7.7) Lymphocytes # (Auto) 1.6 x10^3/uL (1.0-4.8) 1.7 x10^3/uL (1.0-4.8) Monocytes # (Auto) 1.1 x10^3/uL (0.0-1.1) 0.8 x10^3/uL (0.0-1.1) Eosinophils # (Auto) 0.4 x10^3/uL (0.0-0.7) 0.4 x10^3/uL (0.0-0.7) Basophils # (Auto) 0.1 x10^3/uL (0.0-0.2) 0.1 x10^3/uL (0.0-0.2) Sodium Level 134 mmol/L (136-145) 137 mmol/L (136-145) Potassium Level 3.7 mmol/L (3.5-5.1) 4.4 mmol/L (3.5-5.1) Chloride Level 94 mmol/L (98-107) 95 mmol/L (98-107) Carbon Dioxide Level 38 mmol/L (21-32) 37 mmol/L (21-32) Anion Gap 2 (6-14) 5 (6-14) Blood Urea Nitrogen 19 mg/dL (7-20) 18 mg/dL (7-20) Creatinine 1.4 mg/dL (0.6-1.0) 1.2 mg/dL (0.6-1.0) Estimated GFR (Cockcroft-Gault) 37.4 44.7 Glucose Level 97 mg/dL (70-99) 94 mg/dL (70-99) Calcium Level 8.8 mg/dL (8.5-10.1) 9.2 mg/dL (8.5-10.1) Magnesium Level 1.7 mg/dL (1.8-2.4) 1.9 mg/dL (1.8-2.4) BUN/Creatinine Ratio 15 (6-20) Total Bilirubin 0.4 mg/dL (0.2-1.0) Aspartate Amino Transf (AST/SGOT) 14 U/L (15-37) Alanine Aminotransferase (ALT/SGPT) 18 U/L (14-59) Alkaline Phosphatase 74 U/L (46-116) Total Protein 6.7 g/dL (6.4-8.2) Albumin 3.6 g/dL (3.4-5.0) Albumin/Globulin Ratio 1.2 (1.0-1.7) Microbiology 12/03/16 Urine Culture - Final, Complete 12/03/16 Urine Culture Result 1 (NICKI) - Final, Complete Medications Current Medications Aspirin (Children'S Aspirin) 324 mg 1X ONCE PO Last administered on 12/03/16 20:57; Start 12/03/16 at 22:50; Stop 12/03/16 at 22:52; Status DC Aspirin (Children'S Aspirin) 81 mg STK-MED ONCE .ROUTE ; Start 12/03/16 at 20:53 ; Stop 12/03/16 at 20:54; Status DC Furosemide (Lasix) 40 mg 1X ONCE IVP Last administered on 12/03/16 21:24; Start 12/03/16 at 21:20; Stop 12/03/16 at 21:21; Status DC Albuterol/ Ipratropium (Duoneb) 3 ml 1X ONCE NEB Last administered on 21:25; Start 12/03/16 at 21:20; Stop 12/03/16 at 21:21; Status DC Ondansetron HCl (Zofran) 4 mg PRN Q4HRS PRN IV NAUSEA/VOMITING; Start 12/03/16 at 23:00; Stop 12/04/16 at 22:59; Status DC Acetaminophen (Tylenol) 650 mg PRN Q4HRS PRN PO FEVER; Start 12/03/16 at 23:00 ; Stop 12/04/16 at 22:59; Status DC Nitroglycerin (Nitrostat) 0.4 mg PRN Q5MIN PRN SL CHEST PAIN; Start 12/03/16 at 23:00; Stop 12/04/16 at 22:59; Status DC Albuterol/ Ipratropium (Duoneb) 3 ml RTQID NEB ; Start 12/04/16 at 08:00; Stop 12/04/16 at 09:21; Status DC Albuterol/ Ipratropium (Duoneb) 3 ml PRN DAILY PRN NEB WHEEZING; Start at 06:45; Stop 12/04/16 at 10:14; Status DC Furosemide (Lasix) 20 mg DAILY IVP Last administered on 12/04/16 09:26; Start 12/04/16 at 09:15; Stop 12/05/16 at 03:43; Status DC Albuterol/ Ipratropium (Duoneb) 3 ml RTQID NEB Last administered on 12/07/16 05 :33; Start 12/04/16 at 12:00 Buspirone HCl (Buspar) 5 mg TID PO Last administered on 12/06/16 20:30; Start 12/04/16 at 09:15 Furosemide (Lasix) 20 mg 1X ONCE IVP Last administered on 12/04/16 10:03; Start 12/04/16 at 10:00; Stop 12/04/16 at 10:02; Status DC Furosemide (Lasix) 40 mg DAILY IVP Last administered on 12/05/16 08:47; Start 12/05/16 at 09:00; Stop 12/06/16 at 11:40; Status DC Alprazolam (Xanax) 0.25 mg PRN Q8HRS PRN PO ANXIETY / AGITATION Last administered on 12/06/16 20:30; Start 12/04/16 at 10:00 Albuterol Sulfate (Ventolin) 2.5 mg PRN DAILY PRN NEB SHORTNESS OF BREATH; Start 12/04/16 at 10:15; Stop 12/04/16 at 10:54; Status DC Phenazopyridine HCl (Pyridium) 100 mg Q8HRS PO Last administered on 12/07/16 05 :55; Start 12/04/16 at 10:30; Stop 12/07/16 at 10:29 Albuterol Sulfate (Ventolin Hfa) 1-2puff PRN Q4 PRN Q4HRS PRN INH SHORTNESS OF BREATH; Start 12/04/16 at 10:45; Stop 12/04/16 at 10:55; Status DC Hydrochlorothiazide (Hydrodiuril) 25 mg PRN DAILY PRN PO HYPERTENSION, SEE COMMENTS Last administered on 12/05/16 08:47; Start 12/04/16 at 10:45; Stop 12/06 at 11:40; Status DC Labetalol HCl (Trandate) 200 mg BID PO Last administered on 12/05/16 20:27; Start 12/04/16 at 11:00 Pravastatin Sodium (Pravachol) 20 mg DAILY PO Last administered on 12/06/16 08: 28; Start 12/04/16 at 11:00 Non-Formulary Medication 0.63 mg PRN Q4-6HRS PRN NEB SHORTNESS OF BREATH; Start 12/04/16 at 10:45; Status UNV Losartan Potassium (Cozaar) 100 mg DAILY PO Last administered on 12/05/16 08:49 ; Start 12/04/16 at 11:00 Albuterol Sulfate (Ventolin) 2.5 mg PRN Q6HRS PRN NEB SHORTNESS OF BREATH; Start 12/04/16 at 11:00 Aspirin (Children'S Aspirin) 81 mg DAILYWBKFT PO Last administered on 12/06/16 08:28; Start 12/05/16 at 08:00 Vitamin D (Vitamin D3) 5,000 unit DAILY PO Last administered on 12/06/16 08:27 ; Start 12/05/16 at 09:00 Fish Oil (Fish Oil) 1,000 mg DAILY PO Last administered on 12/06/16 08:27; Start 12/05/16 at 09:00 Citalopram Hydrobromide (CeleXA) 10 mg DAILY PO Last administered on 12/05/16 08:50; Start 12/04/16 at 15:30; Stop 12/05/16 at 12:52; Status DC Magnesium Sulfate 50 ml @ 25 mls/hr 1X ONCE IV Last administered on 12/04/16 18:01; Start 12/04/16 at 16:45; Stop 12/04/16 at 18:44; Status DC Acetaminophen (Tylenol) 650 mg PRN Q6HRS PRN PO PAIN / TEMP Last administered on 12/05/16 03:05; Start 12/05/16 at 02:45 Acetaminophen (Tylenol) 325 mg STK-MED ONCE PO ; Start 12/05/16 at 03:02; Stop at 03:03; Status DC Citalopram Hydrobromide (CeleXA) 20 mg DAILY PO Last administered on 12/06/16 08:27; Start 12/06/16 at 09:00 Quetiapine Fumarate (SEROquel) 25 mg QHS PO Last administered on 12/06/16 20:30 ; Start 12/05/16 at 21:00 Magnesium Oxide (Magnesium Oxide) 400 mg DAILY PO Last administered on 12:17; Start 12/06/16 at 11:45 Furosemide (Lasix) 20 mg DAILY PO ; Start 12/07/16 at 09:00; Stop 12/07/16 at 09: 00; Status DC Furosemide (Lasix) 40 mg DAILY PO ; Start 12/07/16 at 09:00 Fluconazole (Diflucan) 100 mg 1X ONCE PO Last administered on 12/06/16 14:34; Start 12/06/16 at 14:30; Stop 12/06/16 at 14:31; Status DC Active Scripts Active Reported Labetalol Hcl 200 Mg Tablet 1 Tab PO BID Hydrochlorothiazide Tablet (Hydrochlorothiazide) 25 Mg Tablet 25 Mg PO PRN DAILY PRN Pravastatin Sodium 20 Mg Tablet 20 Mg PO DAILY Losartan Potassium 100 Mg Tablet 100 Mg PO DAILY Proair Hfa Inhaler (Albuterol Sulfate) 8.5 Gm Hfa.aer.ad 1-2 Puff INH PRN Q4- 6HRS PRN Albuterol Sulfate Neb Soln (Albuterol Sulfate) 0.63 Mg/3 Ml Vial.neb 0.63 Mg NEB PRN Q4-6HRS PRN Vitals/I & O Vital Sign - Last 24 Hours 12/06/16 12/06/16 12/06/16 12/06/16 08:31 08:31 09:00 11:08 Pulse 65 65 B/P (MAP) 115/69 115/69 Pulse Ox 94 O2 Delivery Nasal Cannula Nasal Cannula O2 Flow Rate 3.0 3.0 12/06/16 12/06/16 12/06/16 12/06/16 16:12 16:33 19:14 19:25 Temp 98.6 98.4 Pulse 78 87 Resp 18 18 B/P (MAP) 133/72 (92) 105/64 (78) Pulse Ox 94 94 93 O2 Delivery Nasal Cannula Nasal Cannula Nasal Cannula Nasal Cannula O2 Flow Rate 3.0 3.0 3.0 3.0 12/06/16 12/06/16 12/06/16 12/07/16 20:25 20:30 22:16 05:20 Temp 97.8 97.6 Pulse 87 67 61 Resp 20 18 B/P (MAP) 105/64 121/70 (87) 127/64 (85) Pulse Ox 95 96 96 O2 Delivery Nasal Cannula Nasal Cannula Nasal Cannula O2 Flow Rate 3.0 3.0 3.0 12/07/16 05:35 Pulse Ox 97 O2 Delivery Nasal Cannula O2 Flow Rate 3.0 Intake and Output 12/06/16 12/06/16 12/07/16 15:00 23:00 07:00 Intake Total 960 ml 980 ml 0 ml Output Total 1350 ml Balance -390 ml 980 ml 0 ml SINDY REEVES MD 12/07/16 0931: PROGRESS NOTES Assessment I have personally seen and examined patient, and I agree with above. Briefly, Ms. Bolivar is doing reasonably well this morning. Her breathing continues to improve. She denies any chest pain, palpitations, lightheadedness, or syncope. She reports swelling in her legs is down, but ankles remain painful. She has no other particular complaints this morning. Physical Exam: Gen: AAO X 3, no apparent distress HEENT: Normal Lungs: CTAB, no wheezes or crackles Heart: RRR, normal S1 and S2, 2/6 systolic murmur, no rubs or gallos Abd: Soft, nontender to palpation, + BS Ext: 1+ Pitting edema bilaterally Neuro: Grossly intact. 1. Acute CHF, presumed diastolic, improving 2. HFpEF 3. Elevated troponin 4. COPD exacerbation 5. Essential hypertension 6. Hyperlipidemia 7. DMII 8. History of AAA s/p EVAR 9. Dementia 10. Anxiety Ms. Bolivar is doing reasonably well this morning. She reports that her breathing is back to normal, and I note that she is currently on her baseline 3L O2. She denies any anginal symptoms. On examination, the patient appears more euvolemic today. We will plan on obtaining an echocardiogram to evaluate cardiac structure and function further. I agree with need for a noninvasive ischemic work up in the out patient setting once patient is ready for discharge. I agree with transitioning to oral Lasix today. Please continue the rest of her cardiac regimen as prescribed. We will continue to follow along. Please call with any further questions. Problems: DEEPAK TERESA APRN Dec 07, 2016 08:37 SINDY REEVES MD Dec 07, 2016 09:31
[2016-12-07] MEDS: busPIRone 5 MG TABLET. PO SCH ×2 (08:45→14:53)
[2016-12-07] MEDS: CITALOPRAM 20 MG TABLET. PO SCH (08:45)
[2016-12-07] MEDS: ASPIRIN 81 MG TAB.CHEW PO SCH (08:45)
[2016-12-07] MEDS: PRAVASTATIN 20 MG TABLET. PO SCH (08:46)
[2016-12-07] MEDS: MAGNESIUM OXIDE 400 MG TABLET PO SCH (08:46)
[2016-12-07] MEDS: OMEGA-3 FATTY ACIDS/FISH OIL 1,000 MG CAPSULE. PO SCH (08:46)
[2016-12-07] MEDS: LOSARTAN 50 MG TABLET. PO SCH (08:46)
[2016-12-07] MEDS: LABETALOL HCL 200 MG TABLET PO SCH (08:46)
[2016-12-07] MEDS: CHOLECALCIFEROL (VITAMIN D3) 1,000 UNIT TABLET PO SCH (08:47)
[2016-12-07] MEDS ORDERED: FUROSEMIDE 40 MG TABLET PO SCH (09:00)
[2016-12-07] MEDS ORDERED: FUROSEMIDE 20 MG TABLET PO SCH (09:00)
[2016-12-07 13:44] VITALS: BP 103/62
[2016-12-07] MEDS: ALPRAZolam 0.25 MG TABLET PO PRN (14:53)
[2016-12-07 15:30] VITALS: BP 121/63
[2016-12-07] MEDS ORDERED: CHOL500016 PO (17:14)
[2016-12-07] MEDS ORDERED: ALPR0.254 PO (17:14)
[2016-12-07] MEDS ORDERED: ASPI-630 PO (17:14)
[2016-12-07] MEDS ORDERED: CITA20TA5 PO (17:14)
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
== END 2016-12-07 19:20 | disposition home health service (06) | DRG 291 ==
LOC: ER 19:00 → ICU 22:47 → 1 SOUTH 12-04 17:44
PROVIDERS: ADMIT Family Medicine; ATTEND Family Medicine
DX: I13.0 Hypertensive heart and chronic kidney disease with heart failure and stage 1 through stage 4 chronic kidney disease, or unspecified chronic kidney disease (principal); I50.33 Acute on chronic diastolic (congestive) heart failure; J96.21 Acute and chronic respiratory failure with hypoxia; F33.9 Major depressive disorder, recurrent, unspecified; J44.1 Chronic obstructive pulmonary disease with (acute) exacerbation; E11.22 Type 2 diabetes mellitus with diabetic chronic kidney disease; E78.5 Hyperlipidemia, unspecified; F01.50 Vascular dementia, unspecified severity, without behavioral disturbance, psychotic disturbance, mood disturbance, and anxiety; F17.200 Nicotine dependence, unspecified, uncomplicated; F43.10 Post-traumatic stress disorder, unspecified; F63.9 Impulse disorder, unspecified; I27.2 Other secondary pulmonary hypertension; E66.9 Obesity, unspecified; F22 Delusional disorders; N18.3 Chronic kidney disease, stage 3 (moderate); Z86.79 Personal history of other diseases of the circulatory system; Z90.49 Acquired absence of other specified parts of digestive tract; Z99.81 Dependence on supplemental oxygen; Z88.0 Allergy status to penicillin; Z91.09 Other allergy status, other than to drugs and biological substances; Z90.710 Acquired absence of both cervix and uterus; Z68.30 Body mass index [BMI] 30.0-30.9, adult
CPT/HCPCS: 36415; 71010; 80048; 80053; 80076; 81001; 83735; 83880; 84484; 85027; 87086; 87641; 93005; 94640; 96374; 99406; J1940; J3475; J7620; 97110; 97530; 99285-25